=== PATIENT | female | born 1965 | race Caucasian/White ===

== ENCOUNTER 2018-04-21 08:07 | Day surgery (SDC) | payer OTHER ==
[2018-04-21] MEDS ORDERED: DESFLURANE 15 MIN (11:00)
[2018-04-21] MEDS ORDERED: OXYCODONE/ACETAMINOPHEN (5/325) TAB PO ×2 (11:00)
[2018-04-21] MEDS ORDERED: MEPERIDINE 25 MG INJ IV (11:00)
[2018-04-21] MEDS ORDERED: ONDANSETRON 4 MG INJ IV ×2 (11:00→11:30)
[2018-04-21] MEDS ORDERED: HYDROmorphONE 1 MG/5 ML IV SYRINGE IV ×2 (11:00)
[2018-04-21] MEDS ORDERED: DIPHENHYDRAMINE 50 MG INJ IV (11:00)
[2018-04-21] MEDS ORDERED: PROPOFOL 20 ML (11:09)
[2018-04-21] MEDS ORDERED: METOCLOPRAMIDE 10 MG INJ (11:10)
[2018-04-21] MEDS ORDERED: MIDAZOLAM 1 MG/ML 2 ML INJ (11:10)
[2018-04-21] MEDS ORDERED: CEFAZOLIN 1 GM INJ (11:19)
[2018-04-21] MEDS ORDERED: ROCURONIUM 50 MG INJ (11:21)
[2018-04-21] MEDS ORDERED: ONDANSETRON 4 MG INJ (11:21)
[2018-04-21] MEDS ORDERED: HYDROmorphONE 2 MG/ML SYG (11:22)
[2018-04-21] MEDS ORDERED: HYDROCODONE/APAP (5/325) TAB PO (11:30)
[2018-04-21] MEDS ORDERED: morphine 2 MG INJ IV (11:30)
[2018-04-21] MEDS: BUPIVACAINE LIPOSOME/PF 266 MG/20 ML VIAL INFIL (11:51)
[2018-04-21] MEDS: POLYMYXIN/BACITRACIN 1L IRRIG (11:51)
[2018-04-21] MEDS: EPINEPHrine 1 MG INJ (11:51)
[2018-04-21] MEDS ORDERED: NEOSTIGMINE 3 MG/3 ML SYRINGE ×2 (12:19→12:57)
[2018-04-21] MEDS ORDERED: GLYCOPYRROLATE 0.4 MG INJ ×2 (12:19→12:57)
[2018-04-21] MEDS: HYDROmorphONE 1 MG/5 ML IV SYRINGE IV (13:45)
== END 2018-04-21 14:24 | disposition home or self-care (01) ==
LOC: SDS 08:07
DX: N65.1 Disproportion of reconstructed breast (principal); Z85.3 Personal history of malignant neoplasm of breast; E78.5 Hyperlipidemia, unspecified
CPT/HCPCS: 19318; 88307